=== PATIENT | female | born 1955 ===

== ENCOUNTER 2023-08-08 08:32 | Day surgery (SDC) | payer MEDICARE ==
[2023-08-07 15:13] VITALS: BMI 24.0
[2023-08-08] MEDS ORDERED: Bacitracin Zinc Ointment 30 gm TUBE ONE (10:14)
[2023-08-08] MEDS ORDERED: Lidocaine 1% (PF) 30 ML VIAL ONE (10:14)
[2023-08-08] MEDS ORDERED: Oxymetazoline HCl 0.05% (30 ML BOT) ONE ×2 (10:14→11:27)
[2023-08-08] MEDS ORDERED: EPINEPHrine 1 MG/ML VIAL ONE (10:14)
[2023-08-08] MEDS ORDERED: fentaNYL PF 100 MCG/2 ML SYRINGE ONE (10:45)
[2023-08-08] MEDS ORDERED: PROPOFOL 40 ML ONE (10:45)
[2023-08-08 11:35] LABS: Hematocrit 37.5 % (36.0-47.0); Hemoglobin 12.6 g/dL (12.0-16.0)
[2023-08-08 11:50] LABS: Anion Gap 14 mmol/L (10-20); BUN (Urea Nitrogen) 20 mg/dL (9.8-20.1); Calc. Creatinine Clearance 64 mL/min (70-130); Calcium 9.1 mg/dL (7.8-10.44); Carbon Dioxide 27 mmol/L (23-31); Chloride 104 mmol/L (98-107); Estimated GFR 75; Glucose 94 mg/dL (80-115); Potassium 3.9 mmol/L (3.5-5.1); Sodium 141 mmol/L (136-145)
[2023-08-08] MEDS ORDERED: Dexamethasone 20 MG/5 ML VIAL ONE (12:22)
[2023-08-08] MEDS ORDERED: Rocuronium Bromide 10 MG/ML (10ML VIAL) ONE (12:22)
[2023-08-08] MEDS ORDERED: Ondansetron PF 4 MG/2 ML Vial ONE (12:22)
[2023-08-08] MEDS ORDERED: ePHEDrine Sulfate 50 MG/10 ML VIAL ONE (12:37)
[2023-08-08] MEDS ORDERED: SUGAMMADEX SODIUM 200 MG/2 ML VIAL ONE (12:59)
[2023-08-08] MEDS ORDERED: Hydrocodone-Acetamin 15 ML UDCUP ONE (14:56)
== END 2023-08-08 15:20 | disposition home or self-care (01) ==
LOC: SDC 08:32
PROVIDERS: ATTEND Otolaryngology Plastic Surgery within the Head & Neck
PROC: 09TV8ZZ Resection of Left Ethmoid Sinus, Via Natural or Artificial Opening Endoscopic (ICD-10-PCS; principal; 2023-08-08)
PROC: 09TW8ZZ Resection of Right Sphenoid Sinus, Via Natural or Artificial Opening Endoscopic (ICD-10-PCS; 2023-08-08)
PROC: 09TX8ZZ Resection of Left Sphenoid Sinus, Via Natural or Artificial Opening Endoscopic (ICD-10-PCS; 2023-08-08)
PROC: 09TQ8ZZ Resection of Right Maxillary Sinus, Via Natural or Artificial Opening Endoscopic (ICD-10-PCS; 2023-08-08)
PROC: 09TR8ZZ Resection of Left Maxillary Sinus, Via Natural or Artificial Opening Endoscopic (ICD-10-PCS; 2023-08-08)
PROC: 09TS8ZZ Resection of Right Frontal Sinus, Via Natural or Artificial Opening Endoscopic (ICD-10-PCS; 2023-08-08)
PROC: 09TT8ZZ Resection of Left Frontal Sinus, Via Natural or Artificial Opening Endoscopic (ICD-10-PCS; 2023-08-08)
PROC: 09TU8ZZ Resection of Right Ethmoid Sinus, Via Natural or Artificial Opening Endoscopic (ICD-10-PCS; 2023-08-08)
PROC: 09TL8ZZ Resection of Nasal Turbinate, Via Natural or Artificial Opening Endoscopic (ICD-10-PCS; 2023-08-08)
DX: J34.3 Hypertrophy of nasal turbinates (principal); J34.2 Deviated nasal septum; J32.4 Chronic pansinusitis; J33.9 Nasal polyp, unspecified; H91.90 Unspecified hearing loss, unspecified ear; E78.00 Pure hypercholesterolemia, unspecified; K21.9 Gastro-esophageal reflux disease without esophagitis; Z90.710 Acquired absence of both cervix and uterus; Z96.651 Presence of right artificial knee joint; Z79.899 Other long term (current) drug therapy
CPT/HCPCS: 30140; 30520; 31256; 31257; 31276; 61782; 80048; 85014; 85018; 93005; J0171; 93010; J1100; J2001; J2405; J2704